=== PATIENT | male | born 1965 | race Two or more races ===

== ENCOUNTER 2025-08-16 19:07 | Emergency (ER) | payer OTHER ==
[~2025-08-16] VITALS: Ht 180.3 cm; Wt 91.6 kg
[2025-08-16] MEDS ORDERED: ADDERALL 10 MG10 MG (19:29)
[2025-08-16] MEDS ORDERED: DEXAMETHASONE SODIUM PHOSPHATE 4 MG/ML VIAL IM STA (19:45)
[2025-08-16] MEDS ORDERED: FAMOTIDINE/PF 20 MG/2 ML VIAL IV STA (19:46)
[2025-08-16] MEDS ORDERED: ONDANSETRON HCL 2 MG/ML VIAL IV STA (19:46)
[2025-08-16] MEDS ORDERED: 0.9 % SODIUM CHLORIDE 1,000 ML IV STA (19:46)
[2025-08-16] MEDS ORDERED: METOCLOPRAMIDE HCL 10 MG in DEXTROSE 5 % IN WATER 50 ML IV ONE (20:00)
[2025-08-16] MEDS ORDERED: ONDANSETRON HCL 2 MG/ML VIAL ONE (20:34)
[2025-08-16] MEDS ORDERED: METOCLOPRAMIDE HCL 5 MG/ML VIAL ONE (20:34)
[2025-08-16] MEDS ORDERED: FAMOTIDINE/PF 20 MG/2 ML VIAL ONE (20:35)
[2025-08-16] MEDS ORDERED: DEXAMETHASONE SODIUM PHOSPHATE 4 MG/ML VIAL ONE (20:35)
[2025-08-16 21:49] LABS: BASO % 0.2 % (0.1-1.2); EOS # 0.03 (0.04-0.54); EOS % 0.2 % (0.7-7.0); LYMPH # 1.32 (1.18-3.74); LYMPH % 9.5 % (19.3-53.1); MEAN PLATELET VOLUME 8.40 fl (9.4-12.4); MONO # 0.76 (0.24-0.82); MONO % 5.5 % (4.7-12.5); NEUT # 11.72 (1.56-6.13); NEUT % 84.2 % (34.0-71.1); RED CELL DISTRIBUTION WIDTH 13.0 % (11.6-14.4)
[2025-08-16 22:25] LABS: ALT/SGPT 32.0 U/L (12-78); AST/SGOT 27.0 U/L (15-37); BILIRUBIN TOTAL 0.64 mg/dL (0.3-1.2); BILIRUBIN,CONJUGATED 0.19 mg/dL (0.0-0.2); BUN CREA RATIO 22.0 (7.0-25.0); CREATININE SERUM 1.1 mg/dL (0.70-1.30); GFR 68.51; GLUCOSE FASTING 106.0 mg/dL (65-100); OSMOLALITY SERUM 282.0 MOSM/KG (275-295)
[2025-08-17 00:52] LABS: URINE APPEARANCE Clear; URINE BILIRRUBIN Negative (NEGATIVE); URINE BLOOD Trace; URINE COLOR Yellow; URINE GLUCOSE Negative (NEGATIVE); URINE KETONE Negative (NEGATIVE); URINE LEUKOCYTE Moderate; URINE NITRATE Negative; URINE PROTEIN Negative (NEGATIVE); URINE UROBILINOGEN 0.2 E.U./dl
[2025-08-17 00:56] LABS: URINE BACTERIA 229.1 uL (0.0-1933); URINE EPITHELIAL CELLS 4.9 uL (0.0-38.8); URINE RBC 6.5 uL (0.0-20.8); URINE WBC 874.5 uL (0.0-23.2)
[2025-08-17 01:14] LABS: URINE CAST 0.87 uL (0.0-1.40)
[2025-08-17] MEDS ORDERED: CIPROFLOXACIN IN 5 % DEXTROSE 400 MG/200 ML PIGGYBAG IV STA (02:10)
[2025-08-17] MEDS ORDERED: CIPRO500 MG PO (02:17)
[2025-08-17] MEDS ORDERED: ZOFRAN8 MG PO (02:17)
[2025-08-17] MEDS ORDERED: INTESTINEX680 M1 PO (02:17)
[2025-08-17] MEDS ORDERED: CIPROFLOXACIN IN 5 % DEXTROSE 400 MG/200 ML PIGGYBAG IV ONE (02:27)
== END 2025-08-17 04:13 | disposition home or self-care (01) ==
LOC: ER 19:07
PROVIDERS: General Practice
DX: R19.7 Diarrhea, unspecified (principal); R10.9 Unspecified abdominal pain; Z88.0 Allergy status to penicillin; N40.0 Benign prostatic hyperplasia without lower urinary tract symptoms; N39.0 Urinary tract infection, site not specified; F98.8 Other specified behavioral and emotional disorders with onset usually occurring in childhood and adolescence